=== PATIENT | male | born 1980 | race Caucasian/White ===

== ENCOUNTER 2019-05-13 07:09 | Inpatient (IN) | payer OTHER ==
[2019-05-13 08:03] LABS: Absolute Lymphocytes (CBC) 1.7 K/uL (0.7-4.9); Basophils % 0.5 % (0-1.3); Hematocrit 47.3 % (39.6-49.0); Lymphocytes % 7.8 % (15.3-44.8); MPV 10.5 fL (7.6-11.3); RBC Red Blood Cell Count 5.24 M/uL (4.33-5.43)
[2019-05-13 08:24] LABS: Albumin 3.5 g/dL (3.4-5.0); Bilirubin Direct 0.3 mg/dL (0-0.2); Bilirubin Total 1.4 mg/dL (0.2-1.0); Potassium 3.9 mmol/L (3.5-5.1); Protein, Total 7.5 g/dL (6.4-8.2)
[2019-05-13] MEDS ORDERED: Levofloxacin 750mg IV 750 MG/150 ML BAG IV ONE (08:47)
[2019-05-13] MEDS ORDERED: ONDANSETRON 4 MG/2 ML VIAL ONE (08:47)
[2019-05-13] MEDS ORDERED: MORPHINE 4 MG/ML SYR ONE (08:47)
[2019-05-13] MEDS ORDERED: METRONIDAZOLE 500mg IVPB 500 MG/100 ML BAG IV ONE (08:48)
[2019-05-13] MEDS ORDERED: HYDROMORPHONE HCL 0.5 MG/0.5 ML INJ ONE (09:06)
[2019-05-13 09:59] LABS: Blood Morphology Comment NOT SEEN (NOT SEEN); Platelet Estimate ADEQ
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
[2019-05-13] MEDS ORDERED: MORPHINE 2 MG/ML SYR IV PRN (11:36)
[2019-05-13] MEDS: D5 0.45 NS 1,000 ML IV SCH ×2 (12:52→23:11)
[2019-05-13 13:49] VITALS: BMI 41.3
[2019-05-13] MEDS ORDERED: ACETAMINOPHEN 325 MG/SUPP PR PRN (15:36)
[2019-05-13] MEDS ORDERED: NA CHLORIDE 0.9% 1,000 ML IV ONE (16:00)
[2019-05-13] MEDS: PIPER/TAZO/NS 3.375gm 3.375 GM/100 ML BAG IVPB SCH (16:41)
[2019-05-13] MEDS: HYDROMORPHONE HCL 0.5 MG/0.5 ML INJ IV PRN (18:31)
[2019-05-13] MEDS: ONDANSETRON 4 MG/2 ML VIAL IV PRN (18:32)
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
[2019-05-14] MEDS: HYDROMORPHONE HCL 0.5 MG/0.5 ML INJ IV PRN (01:11)
[2019-05-14] MEDS: ONDANSETRON 4 MG/2 ML VIAL IV PRN (01:12)
[2019-05-14] MEDS: PIPER/TAZO/NS 3.375gm 3.375 GM/100 ML BAG IVPB SCH ×3 (01:12→18:04)
[2019-05-14] MEDS: D5 0.45 NS 1,000 ML IV SCH ×5 (03:36→19:27)
[2019-05-14 06:26] LABS: Absolute Lymphocytes (CBC) 1.9 K/uL (0.7-4.9); Basophils % 1.2 % (0-1.3); Hematocrit 45.7 % (39.6-49.0); Lymphocytes % 22.9 % (15.3-44.8); MPV 10.2 fL (7.6-11.3); RBC Red Blood Cell Count 4.95 M/uL (4.33-5.43)
[2019-05-14 06:29] LABS: Potassium 4.3 mmol/L (3.5-5.1)
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
[2019-05-15] MEDS: PIPER/TAZO/NS 3.375gm 3.375 GM/100 ML BAG IVPB SCH ×2 (00:12→09:59)
[2019-05-15] MEDS: D5 0.45 NS 1,000 ML IV SCH (03:17)
[2019-05-15 06:36] LABS: Absolute Lymphocytes (CBC) 2.7 K/uL (0.7-4.9); Basophils % 1.1 % (0-1.3); Hematocrit 45.4 % (39.6-49.0); Lymphocytes % 28.5 % (15.3-44.8); MPV 10.2 fL (7.6-11.3); RBC Red Blood Cell Count 4.92 M/uL (4.33-5.43)
[2019-05-15 07:06] LABS: Potassium 4.8 mmol/L (3.5-5.1)
[2019-05-15 07:34] LABS: Blood Morphology Comment NOT SEEN (NOT SEEN); Platelet Estimate ADEQ; Urine White Blood Cell Casts OK
[2019-05-15 09:17] VITALS: O2SAT 97
[2019-05-15 10:13] VITALS: TEMP 97
--- NOTE | 2019-05-15 11:55 | PN ---
Date of Progress Note: 05/15/2019 Subjective: Patient is awake, alert. No complaint. Tolerating full liquids. Objective: Vital signs: Stable. Afebrile. Abdomen: Completely benign. Assessment: Acute sigmoid diverticulitis. Recommendations: Patient cleared for discharge, on oral antibiotics for 2 weeks. Follow with GI for colonoscopy. /MODL Voice ID: [id number] Report ID: [id number]
[2019-05-15 13:13] VITALS: BP 114/69
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
== END 2019-05-15 12:30 | disposition home or self-care (01) | DRG 392 ==
LOC: ER 07:09 → ERHOLD 10:47 → 4TH 11:28
PROVIDERS: ADMIT Family Medicine; ATTEND Family Medicine
DX: K57.32 Diverticulitis of large intestine without perforation or abscess without bleeding (principal); Z68.41 Body mass index [BMI] 40.0-44.9, adult; J45.20 Mild intermittent asthma, uncomplicated; E80.6 Other disorders of bilirubin metabolism; E66.9 Obesity, unspecified; Z90.5 Acquired absence of kidney; D72.821 Monocytosis (symptomatic)
CPT/HCPCS: 36415; 74177; 80048; 80076; 83605; 83690; 84145; 85025; 87040; 94760; 96365; 96367; 96375; 99285; J1170; J2270; J2405; J2543; J7030; J7799; Q9967

== ENCOUNTER 2020-06-05 22:15 | Emergency (ER) | payer OTHER ==
--- OUTSIDE RECORDS SUMMARY | 2020-06-05 22:19 | XMS REPORT | Continuity of Care Document ---
:1980 Author Organization [facility] t Address [address] [place] [address] Care Team Providers Name Role Phone Isabel [employer]PERVIS[employer] Attending Clinician Lab, Fam Pob I Attending Clinician Unavailable Doctor Unassigned, Name Attending Clinician Unavailable Problems This patient has no known problems. Allergies, Adverse Reactions, Alerts This patient has no known allergies or adverse reactions. Medications This patient has no known medications. Procedures This patient has no known procedures. Encounters Start End Encounter Admission Attending Care Care Encounter Source Date/Time Date/Time Type Type Clinicians Facility Department ID 2019-10-02 2019-10-02 Telephone Isabel [facility] [id number] 00:00:00 00:00:00 [facility] [id number] [place] [id number] essio [id number] nal [address] 2019-09-30 2019-09-30 Laboratory Lab, [facility] [id number] 15:17:29 15:37:29 Only Fam Pob I [facility] [id number] [place] [id number] Professio [phone] nal [address] 2019-09-30 2019-09-30 Letter Doctor KERRIE [id number] 00:00:00 00:00:00 (Out) UnassORLY pierce [id number] [place] [id number] [id number] Results This patient has no known results.
[2020-06-06 00:58] LABS: Absolute Lymphocytes (CBC) 5.1 K/uL (0.7-4.9); Basophils % 0.9 % (0-1.3); Hematocrit 42.3 % (39.6-49.0); Lymphocytes % 30.6 % (15.3-44.8); MPV 10.6 fL (7.6-11.3); Potassium 3.7 mmol/L (3.5-5.1); Sodium Level 143 mmol/L (136-145)
[2020-06-06 01:01] LABS: Albumin 3.6 g/dL (3.4-5.0); BUN Blood Urea Nitrogen 10 mg/dL (7-18); Bicarbonate 27 mmol/L (21-32); Glucose Level 100 mg/dL (74-106); Lipase 84 U/L (73-393)
[2020-06-06] MEDS ORDERED: NA CHLORIDE 0.9% 1,000 ML ONE (01:01)
[2020-06-06] MEDS ORDERED: METRONIDAZOLE 500mg IVPB 500 MG/100 ML BAG IV ONE (01:01)
[2020-06-06] MEDS ORDERED: Levofloxacin 750mg IV 750 MG/150 ML BAG IV ONE (01:01)
[2020-06-06 01:03] LABS: Bilirubin Direct < 0.1 mg/dL (0-0.2)
[2020-06-06 01:04] LABS: ALT/SGPT 27 U/L (12-78); AST/SGOT 24 U/L (15-37)
[2020-06-06 01:05] LABS: Bilirubin Total 0.3 mg/dL (0.2-1.0); Protein, Total 7.8 g/dL (6.4-8.2)
[2020-06-06 01:06] LABS: Alkaline Phosphatase 95 U/L (45-117)
[2020-06-06 01:09] LABS: Troponin (Emerg Dept Use Only) < 0.02 ng/mL (0.0-0.045)
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
[2020-06-06 04:00] VITALS: TEMP 99
[2020-06-06 04:02] VITALS: O2SAT 99
[2020-06-06 04:03] VITALS: BP 143/91
--- NOTE | 2020-06-06 07:24 | RAD REPORT ---
EXAM DESCRIPTION: Carlee Single View06/06/2020 12:49 am CLINICAL HISTORY: Abdominal pain COMPARISON: 2006 FINDINGS: The lungs appear clear of acute infiltrate. The heart is normal size IMPRESSION: No acute abnormalities displayed
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
--- NOTE | 2020-06-06 16:48 | EKG ---
Test Date: 2020-06-05 Test Time: 23:50:41 Induction Coordination Engineer: SHELBY MEASUREMENT RESULTS: Intervals: Rate: 75 IN: 158 QRSD: 82 QT: 374 QTc: 417 [place]: P: 29 IN: 158 QRS: 76 T: 29 INTERPRETIVE STATEMENTS: Normal sinus rhythm Normal ECG No previous ECG available for comparison Electronically Signed On 06-06-20 16:47:41 CDT by Yakov Sahu
== END 2020-06-06 03:55 | disposition home or self-care (01) ==
LOC: ER 22:15
DX: R10.819 Abdominal tenderness, unspecified site (principal); K57.30 Diverticulosis of large intestine without perforation or abscess without bleeding; Z98.84 Bariatric surgery status; R42 Dizziness and giddiness; J45.909 Unspecified asthma, uncomplicated; G47.30 Sleep apnea, unspecified; D72.829 Elevated white blood cell count, unspecified
CPT/HCPCS: 96365; 96367; 96368; 93005; 85025; 80048; 36415; 80076; 84484; 83690; 74177; 71045; 99284; 96366; Q9967; J7030

== ENCOUNTER 2022-06-09 16:56 | Observation (INO) | payer OTHER ==
--- OUTSIDE RECORDS SUMMARY | 2022-06-09 16:59 | XMS REPORT | Continuity of Care Document ---
:1980 Author Organization [facility] t Address [address] [place] [address] Care Team Providers Name Role Phone Pcp, Patient Does Not Have A Primary Care Physician +[id number] Therapy, Clc Covid Infusion Attending Clinician Unavailable Dakotah Rehman MD Attending Clinician DAKOTAH REHMAN Attending Clinician Unavailable Doctor Unassigned, [place] Attending Clinician Unavailable Sabas Leone Attending Clinician Lab, Adc Fam Pob I Attending Clinician Unavailable SABAS RAMSEY Attending Clinician Unavailable Payers Payer Name Policy Type Policy Number Effective Date Expiration Date S bar [facility] [id number] 2014 00:00:00 Problems This patient has no known problems. Allergies, Adverse Reactions, Alerts Allergy Allergy Status Severity Reaction(s) Onset Inactive Treating Comm ents Source Name Type Date Date Clinician NO KNOWN Drug Active Univers ALLERGIE Class ity of S [facility] Social History Social Habit Start Date Stop Date Quantity Comments Source History of tobacco Cigarette Smoker University of use [facility] Cigarette 2014-10-16 2014-10-16 University of pack-years 00:00:00 00:00:[address] [facility] Tobacco use and 2014-10-16 2014-10-16 Smokeless tobacco Un iversity of exposure 00:00:00 00:00:00 non-user [facility] Alcohol intake 2014-10-16 2014-10-16 Current drinker Unive rsity of 00:00:00 00:00:00 of alcohol [facility] [place] Tobacco Comment 2014-10-16 2014-10-16 Smokes about 6 to Un iversity of 00:00:00 00:00:00 10 cigarettes a [place] [facility] . Branch Cigarettes smoked 2014-10-16 2014-10-16 Univers ity of current (pack per 00:00:00 00:00:00 [facility] ed) - Reported Branch Sex Assigned At [birth year] Universit y of 00:00:00 00:00:[address] [facility] Smoking Status Start Date Stop Date Source Smokes tobacco daily 2014-10-16 00:00:[address] Univers [address] [facility] Medications Ordered Filled Start Stop Current Ordering Indication Dosage Frequency Signature Comments Components Source Medication Medication Date Date Medication? Clinician (SIG) Name Name clindamycin Yes Apply to Un bridget (CLEOCIN T) 10-16 area(s) 2 ity of 1 % 00:00: (two) [place] solution 00 times Medical daily. Branch clindamycin Yes Apply to Un bridget (CLEOCIN T) 10-16 area(s) 2 ity of 1 % 00:00: (two) [place] solution 00 times Medical daily. Branch Immunizations Ordered Filled Immunization Date Status Comments [facility] e Immunization Name Name BEJACQUELINEMAB 2021-09-13 Completed University o f 00:00:[address] [facility] BEBTELOVIMAB 2021-09-13 Completed University o f 00:00:[address] [facility] Vital Signs Vital Name Observation Time Observation Value Comments Source Systolic blood 2021-09-13 19:33:00 117 mm[Hg] Univer sity of pressure [facility] Diastolic blood 2021-09-13 19:33:00 76 mm[Hg] Unive rsity of pressure [facility] Heart rate 2021-09-13 19:33:00 69 /min [facility] Body temperature 2021-09-13 19:33:00 36.56 [facility]anne [facility] [place] Respiratory rate 2021-09-13 19:33:00 16 /min [facility] Oxygen saturation in 2021-09-13 19:33:00 98 /min [facility] Arterial blood by [facility] Pulse oximetry Branch Body height 2021-09-13 18:30:00 185.4 cm [facility] Body weight 2021-09-13 18:30:00 142.883 kg [facility] BMI 2021-09-13 18:30:00 41.56 kg/m2 [facility] Procedures Procedure Date / Time Performed Performing Clinician [facility] e CONSENT/REFUSAL FOR 2021-09-13 05:01:00 Doctor Unassigned, No Un [facility] DIAGNOSIS AND Name [facility] TREATMENT Encounters Start End Encounter Admission Attending Care Care Encounter Source Date/Time Date/Time Type Type Clinicians Facility Department ID 2021-09-13 2021-09-13 Nurse Therapy, Clc Covid Infusion [facility] [id number] Univers 13:30:00 14:30:00 Visit Dakotah Rehman HEALTH [id number] ity of [place] [id number] [place] [id number] [place] [id number] Branch OFFICE BUILDING 2021-09-13 2021-09-13 Outpatient R [facility] [id number] Univers 13:30:00 13:30:00 DAKOTAH marks [facility] 2021-09-13 2021-09-13 Orders Doctor SY [id number] Univers 00:00:00 00:00:00 Only Unassigned, ORLY [id number] ity of [place] [facility] [id number] [place] [id number] [address] 2019-10-02 2019-10-02 Bruno Ramsey [facility] [id number] 00:00:00 00:00:00 [facility] [id number] [place] [id number] Professio [id number] nal [address] 2019-09-30 2019-09-30 Laboratory Lab, Adc [facility] [id number] 15:17:29 15:37:29 Only Fam Pob I Health [id number] [place] [id number] Professio [id number] nal [address] 2019-09-30 2019-09-30 Outpatient R [facility] [id number] Univers 15:20:00 15:20:00 SABAS ity [facility] 2019-09-30 2019-09-30 Letter Doctor KERRIE [id number] 00:00:00 00:00:00 (Out) Unassigned, ORLY [id number] [place] [facility] [id number] Results This patient has no known results.
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
[2022-06-09] MEDS ORDERED: NA CHLORIDE 0.9% 100 ML ONE (20:52)
[2022-06-09] MEDS ORDERED: MORPHINE 4 MG/ML SYR ONE (20:52)
[2022-06-09] MEDS ORDERED: ONDANSETRON 4 MG/2 ML VIAL ONE (20:52)
[2022-06-09] MEDS ORDERED: PIPERACIL/TAZO 3.375 GM VIAL IV ONE (20:53)
[2022-06-09] MEDS ORDERED: FAMOTIDINE 20 MG/2 ML VIAL IV ONE (20:53)
[2022-06-09] MEDS ORDERED: NA CHLORIDE 0.9% 1,000 ML ONE (20:53)
[2022-06-09 21:24] LABS: Absolute Lymphocytes (CBC) 2.5 K/uL (0.7-4.9); Hematocrit 47.2 % (39.6-49.0); Lymphocytes % 20.2 % (15.3-44.8); MCV 89.8 fL (80-100); MPV 10.7 fL (7.6-11.3); RBC Red Blood Cell Count 5.26 M/uL (4.33-5.43)
[2022-06-09 21:32] LABS: Albumin 3.6 g/dL (3.4-5.0); Potassium 3.4 mEq/L (3.5-5.1); Protein, Total 7.7 g/dL (6.4-8.2)
[2022-06-09 21:34] LABS: SARS-CoV-2 Antigen Rapid Res Negative (Negative)
[2022-06-09 21:53] LABS: Urine Bacteria None Seen /HPF (<20); Urine Crystals Unidentified Few /HPF (None Seen); Urine Mucus 2+ /HPF (None Seen); Urine WBC Clump Rare /HPF (None Seen)
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
[2022-06-09] MEDS ORDERED: HYDROMORPHONE HCL 0.5 MG/0.5 ML INJ IV PRN (23:29)
[2022-06-09] MEDS: NA CHLORIDE 0.9% 1,000 ML IV SCH (23:29)
[2022-06-09] MEDS ORDERED: ONDANSETRON 4 MG/2 ML VIAL IV PRN (23:29)
[2022-06-09] MEDS ORDERED: ACETAMINOPHEN 500 MG TAB PO PRN (23:29)
[2022-06-09 23:58] VITALS: BMI 45.5
[2022-06-10] MEDS: METRONIDAZOLE 500mg IVPB 500 MG/100 ML BAG IV SCH ×3 (00:20→16:43)
[2022-06-10 03:43] LABS: Hematocrit 42.9 % (39.6-49.0); Lymphocytes % 24.6 % (15.3-44.8); MPV 10.4 fL (7.6-11.3); RBC Red Blood Cell Count 4.76 M/uL (4.33-5.43)
[2022-06-10 03:58] LABS: Magnesium 2.2 mg/dL (1.6-2.4); Phosphorus 3.4 mg/dL (2.5-4.9); Potassium 4.3 mEq/L (3.5-5.1)
[2022-06-10 08:08] VITALS: O2SAT 94
[2022-06-10] MEDS ORDERED: CIPROFLOXACIN 400mg IV 400 MG/200 ML BAG IV SCH (09:00)
[2022-06-10] MEDS: NA CHLORIDE 0.9% 1,000 ML IV SCH (09:43)
[2022-06-10 16:47] VITALS: BP 133/74; TEMP 97.8
== END 2022-06-10 18:31 | disposition home or self-care (01) ==
LOC: ER 16:56 → ERHOLD 22:11 → 2ND 22:32
PROVIDERS: ADMIT Hospitalist; ATTEND Hospitalist
DX: K57.32 Diverticulitis of large intestine without perforation or abscess without bleeding (principal); A41.9 Sepsis, unspecified organism; G47.33 Obstructive sleep apnea (adult) (pediatric); E66.01 Morbid (severe) obesity due to excess calories; Z68.41 Body mass index [BMI] 40.0-44.9, adult; Z20.822 Contact with and (suspected) exposure to COVID-19
CPT/HCPCS: 96365; 87040 ×2; 87088; 85025 ×2; 87086; 80048; 36415; 83735; 84100; 80061; 82565; 83605; 83036; 81015; 83690; 80053; 74177; 96375; 99285; 87811; Q9967; J2543; J2405; J0744; J7030 ×3; G0378